=== PATIENT | male | born 1980 | race African-American/Black ===

== ENCOUNTER 2017-05-29 15:49 | Emergency (ER) | payer BC ==
[2017-05-29 16:06] VITALS: BP 118/79
--- NOTE | 2017-05-29 16:32 | UC ---
Complaint Male HPI - HPI Summary HPI Summary: Patient presents with complaints of dysuria, and is worried he may have a STD. He denies any penile discharge, abdominal pain, testicular pain or swelling. He denies any fever or chills. - History of Current Complaint Chief Complaint: UCSTDScreening Stated Complaint: STD TESTING Time Seen by Provider: 05/29/17 16:08 Hx Obtained From: Patient Onset/Duration: Gradual Onset Timing: Intermittent Severity Initially: Mild Severity Currently: Mild Location: Penis Character: Burning Associated Signs And Symptoms: Positive: Negative - Allergies/Home Medications Allergies/Adverse Reactions: Allergies Allergy/AdvReac Type Severity Reaction Status Date / Time No Known Allergies Allergy Verified 05/29/17 16:06 Home Medications: Home Medications Levothyroxine TAB* [Synthroid TAB*] 125 mcg PO 0800 05/29/17 [History Confirmed 05/29/17] PMH/Surg Hx/FS Hx/Imm Hx Previously Healthy: Yes - Surgical History Surgical History: Yes Surgery Procedure, Year, and Place: LEFT FOOT SURGERY 10/2015. BACK SURGERY CHILD. THYROID SURGERY 2015 - Family History Known Family History: Positive: Diabetes - father - Social History Occupation: Employed Full-time Lives: With Family Alcohol Use: None Substance Use Type: None Smoking Status (MU): Never Smoked Tobacco When Did the Patient Quit Smoking/Using Tobacco: 15 YRS AGO Review of Systems Constitutional: Negative Skin: Negative Eyes: Negative ENT: Negative Respiratory: Negative Cardiovascular: Negative Gastrointestinal: Negative Genitourinary: Dysuria Motor: Negative Neurovascular: Negative Musculoskeletal: Negative Neurological: Negative All Other Systems Reviewed And Are Negative: Yes Physical Exam Triage Information Reviewed: Yes Appearance: Well-Appearing Vital Signs: Initial Vital Signs Temp 98.5 F 05/29/17 16:02 Pulse 78 05/29/17 16:02 Resp 14 05/29/17 16:02 BP 118/79 05/29/17 16:02 Pulse Ox 99 05/29/17 16:02 Vital Signs Reviewed: Yes Eye Exam: Normal ENT Exam: Normal Neck exam: Normal Respiratory Exam: Normal Cardiovascular Exam: Normal Abdominal Exam: Normal Abdomen Description: Positive: Other: - ;Normal external genitalia, circumsized male. palpable nodule on left shaft of penis (chronic). no discharge. no vesicles noted. Musculoskeletal Exam: Normal Skin Exam: Normal Complaint Male Course/Dx - Course Course Of Treatment: Patient presents with dysuria, an UA and urine GC/CT ordered results pending. Patient discharged in stable condition. Will follow up with test results. - Differential Dx/Diagnosis Differential Diagnosis/HQI/PQRI: Other - dysuria Provider Diagnoses: dysuria Discharge - Discharge Plan Condition: Stable Disposition: HOME Patient Education Materials: Dysuria (ED) Referrals: Bertha Monge MD [Primary Care Provider] -
== END 2017-05-29 16:52 | disposition home or self-care (01) ==
LOC: UCEAST 15:49
DX: R30.0 Dysuria (principal); Z87.891 Personal history of nicotine dependence
CPT/HCPCS: 81003; 87491; 87591; 99211; G0463

== ENCOUNTER 2018-08-21 12:50 | Emergency (ER) | payer BC ==
--- NOTE | 2018-08-21 13:28 | UC ---
Cardiac HPI - HPI Summary HPI Summary: PATIENT REPORTS ABOUT 3 WEEKS OF COUGH AND CONGESTION. COMPLETED A COURSE OF AMOXICILLIN 3 DAYS AGO AND FEELS NO BETTER. DENIES FEVER OR NAUSEA BUT STATES THIS MORNING HE DEVELOPED LEFT ANTERIOR CHEST PAIN. PATIENT IS UNABLE TO QUALIFY THE DISCOMFORT BUT STATES THAT IT RADIATED THROUGH TO HIS BACK AND DOWN HIS LEFT ARM. HE DID HAVE ASSOCIATED SHORTNESS OF BREATH AND FELT IT WAS WORSE WHEN HE MOVED AROUND. STATES THE PAIN LASTED FOR ABOUT 5 MINUTES AND THEN SPONTANEOUSLY RESOLVED. PATIENT IS CURRENTLY CHEST PAIN-FREE. DENIES RECREATIONAL DRUG USE. - History of Current Complaint Chief Complaint: UCRespiratory Stated Complaint: COUGH Time Seen by Provider: 08/21/18 13:10 Hx Obtained From: Patient Onset/Duration: Sudden Onset, Lasting Hours, Resolved Initial Severity: Moderate Current Severity: Moderate Pain Intensity: 2 Chest Pain Location: Left Anterior Character: Fluttering Aggravating Factor(s): Exertion Alleviating Factor(s): Spontaneous Resolution Associated Signs & Symptoms: Positive: Chest Pain, SOB, Cough, Back Pain - Allergy/Home Medications Allergies/Adverse Reactions: Allergies Allergy/AdvReac Type Severity Reaction Status Date / Time No Known Allergies Allergy Verified 08/21/18 13:05 PMH/Surg Hx/FS Hx/Imm Hx Endocrine History: Hypothyroidism - Surgical History Surgical History: Yes Surgery Procedure, Year, and Place: LEFT FOOT SURGERY 10/2015 - REMOVAL OF FOOT - W/ A PIN. BACK SURGERY CHILD -. THYROID SURGERY 2015. [facility] -[facility]- - Family History Known Family History: Positive: Diabetes - father - Social History Alcohol Use: None Substance Use Type: None Smoking Status (MU): Former Smoker When Did the Patient Quit Smoking/Using Tobacco: 15 YRS AGO Review of Systems All Other Systems Reviewed And Are Negative: Yes Constitutional: Positive: Negative Skin: Positive: Negative ENT: Positive: Nasal Discharge Respiratory: Positive: Shortness Of Breath, Cough Cardiovascular: Positive: Chest Pain Gastrointestinal: Positive: Negative Physical Exam Triage Information Reviewed: Yes Appearance: Well-Appearing, No Pain Distress, Well-Nourished Vital Signs: Initial Vital Signs Temp 98.5 F 08/21/18 13:00 Pulse 88 08/21/18 13:00 Resp 18 08/21/18 13:00 BP 137/72 08/21/18 13:00 Pulse Ox 98 08/21/18 13:00 Vital Signs Reviewed: Yes Eyes: Positive: Conjunctiva Clear ENT: Positive: Hearing grossly normal Neck: Positive: Supple Respiratory Exam: Normal Cardiovascular Exam: Normal Abdomen Description: Positive: Soft Musculoskeletal: Positive: No Edema Neurological: Positive: Alert Psychological: Positive: Age Appropriate Behavior Skin: Negative: Rashes - Assessment/Plan Course Of Treatment: EKG SINUS RHYTHM 69 BPM. T WAVE FLATTENING INFERIOR LEADS AND QUESTIONABLE ST ELEVATION ANTERIOR LEADS. PT IS CURRENTLY ASYMPTOMATIC BUT GIVEN EKG APPEARANCE AND PT C/O CP EARLIER TODAY ROXIE SEND TO ED BY AMBULANCE. PIV INSERTED. ASA 81MG X 4 GIVEN IN UC. - Clinical Impression Provider Diagnosis: Chest pain, Abnormal EKG - Physician Notifications Discussed Patient Care With: Len Clarke - [place] [facility] [facility] [place] Time Discussed With Above Provider: 13:35 Instructed by Provider To: MD Will See In ED Discharge - Sign-Out/Discharge Documenting (check all that apply): Patient Departure All imaging exams completed and their final reports reviewed: No Studies - Discharge Plan Condition: Stable Disposition: TRANS HIGHER LVL OF CARE FAC Patient Education Materials: Chest Pain (ED) Referrals: Bertha Monge MD [Primary Care Provider] - If Needed - Billing Disposition and Condition Condition: STABLE Disposition: Trans Higher Lvl of Care Fac
[2018-08-21] MEDS ORDERED: Aspirin 81 mg CHEW TAB* 81 MG TAB.CHEW PO ONE (13:39)
[2018-08-21 13:49] VITALS: BP 129/72
== END 2018-08-21 13:56 | disposition short-term general hospital (02) ==
LOC: UCEAST 12:50
DX: R07.89 Other chest pain (principal); R94.31 Abnormal electrocardiogram [ECG] [EKG]; R06.02 Shortness of breath; R05 Cough; M54.9 Dorsalgia, unspecified; Z87.891 Personal history of nicotine dependence
CPT/HCPCS: 93005; 99213; A9270-GY; G0463

== ENCOUNTER 2018-08-21 14:09 | Emergency (ER) | payer BC ==
[2018-08-21 15:08] LABS: ABS Basophils 0.1 10^3/ul (0-0.2); ABS Eosinophils 0.3 10^3/ul (0-0.6); ABS Lymphocytes 1.6 10^3/ul (1.0-4.8); ABS Monocytes 0.5 10^3/ul (0-0.8); ABS Neutrophils 3.2 10^3/ul (1.5-7.7); ABS Nucleated RBC 0 10^3/ul; Eosinophil % 5.6 %; Hematocrit 41 % (42-52); Hemoglobin 13.8 g/dl (14.0-18.0); Lymphocyte % 28.3 %; Mean Corpuscular HGB Conc 34 g/dl (31-36); Mean Corpuscular Hemoglobin 31 pg (27-31); Mean Corpuscular Volume 91 fL (80-94); Mean Platelet Volume 9.1 fL (7.4-10.4); Nucleated Red Blood Cells % 0.2; Platelet Count 234 10^3/ul (150-450); Red Blood Count 4.46 10^6/ul (4.00-5.40); Red Cell Distribution Width 14 % (10.5-15); White Blood Count 5.6 10^3/ul (3.5-10.8)
--- NOTE | 2018-08-21 15:09 | ED ---
HPI Chest Pain - HPI Summary HPI Summary: This pt is a 38 y/o male presenting to [facility] via EMS from [facility] for chest pain today. Pt reports he has had congestion and cough for the past 3 weeks. He notes he saw his PCP and was placed on Amoxicillin, which he finished 3 days ago with mild relief. Pt states he then began with productive cough with dark yellow/green sputum. This morning at around 05:30 while he was brushing his teeth he had sudden onset of chest pain. Pt describes "funny bone pain" on the left side of his chest that radiated down his left arm. Denies fever, chills, abd pain, nausea, vomiting. Pt notes his chest pain lasted a few minutes and resolved on its own. Pt went to Urgent Care where he was given 324 mg aspirin had an EKG done. Currently pt denies any chest pain. Pt denies having had chest pain in the past few weeks. Denies tobacco and drug use. No PMHx. - History of Current Complaint Chief Complaint: EDFluSymptoms Time Seen by Provider: 08/21/18 14:31 Hx Obtained From: Patient Onset/Duration: Started Hours Ago, Resolved Timing: Lasting Minutes Initial Severity: Moderate Current Severity: None Pain Intensity: 0 Pain Scale Used: 0-10 Numeric Chest Pain Location: Left Anterior Chest Pain Radiates: Yes Chest Pain Radiates To:: Arm - left Character: Dull/Aching - "funny bone pain" Aggravating Factor(s): Nothing Alleviating Factor(s): Spontaneous Resolution Associated Signs and Symptoms: Positive: Chest Pain. Negative: Fever, Chills, Nausea, Abdominal Pain, Vomiting - Allergy/Home Medications Allergies/Adverse Reactions: Allergies Allergy/AdvReac Type Severity Reaction Status Date / Time No Known Allergies Allergy Verified 08/21/18 13:05 PMH/Surg Hx/FS Hx/Imm Hx Endocrine/Hematology History: Reports: Hx Thyroid Disease Denies: Hx Diabetes Cardiovascular History: Denies: Hx Hypertension, Hx Pacemaker/ICD History: Denies: Hx Renal Disease Sensory History: Denies: Hx Contacts or Glasses - GLASSES, Hx Hearing Aid Opthamlomology History: Denies: Hx Contacts or Glasses - GLASSES Psychiatric History: Denies: Hx Panic Disorder - Surgical History Surgery Procedure, Year, and Place: LEFT FOOT SURGERY 10/2015 - REMOVAL OF FOOT - W/ A PIN. BACK SURGERY CHILD -. THYROID SURGERY 2016. [facility] -EYE- Hx Anesthesia Reactions: No Infectious Disease History: No Infectious Disease History: Denies: Traveled Outside the [place] in Last 30 Days - Family History Known Family History: Positive: Diabetes - father - Social History Alcohol Use: None Substance Use Type: Reports: None Smoking Status (MU): Former Smoker Review of Systems Negative: Fever, Chills Positive: Chest Pain Positive: Cough Negative: Abdominal Pain, Vomiting, Nausea All Other Systems Reviewed And Are Negative: Yes Physical Exam - Summary Physical Exam Summary: Appearance: Well appearing, no pain distress Skin: warm, dry, reflects adequate perfusion Head/face: normal Eyes: EOMI, GWYN ENT: normal Neck: supple, nontender Respiratory: CTA, breath sounds present Cardiovascular: RRR, pulses symmetrical Abdomen: nontender, soft Musculoskeletal: normal, strength/ROM intact Neuro: normal, sensory motor intact, A&Ox3 Triage Information Reviewed: Yes Vital Signs On Initial Exam: Initial Vitals Temp Pulse Resp BP Pulse Ox 98.9 F 59 18 121/74 99 08/21/18 14:14 08/21/18 14:14 08/21/18 14:14 08/21/18 14:14 08/21/18 14:14 Vital Signs Reviewed: Yes Diagnostics - Vital Signs Vital Signs Temp Pulse Resp BP Pulse Ox 08/21/18 14:14 98.9 F 59 18 121/74 99 - Laboratory Result Diagrams: 08/21/18 14:59 08/21/18 14:59 Lab Statement: Any lab studies that have been ordered have been reviewed, and results considered in the medical decision making process. - Radiology Chest XR Radiology Interpretation Completed By: Radiologist Summary of Radiographic Findings: IMPRESSION: No active cardiopulmonary disease. Dr. Clarke has reviewed this report. - EKG 14:12 Cardiac Rate: NL - at 82 bpm EKG Rhythm: Sinus Rhythm Summary of EKG Findings: sinus rhythm at 82 bpm Chest Pain Course/Dx - Course Assessment/Plan: Pt is a 38 y/o male who presents via EMS from [facility] for chest pain today. Pt reports he has had congestion and cough for the past 3 weeks. He notes he saw his PCP and was placed on Amoxicillin, which he finished 3 days ago with mild relief. Pt states he then began with productive cough with dark yellow/green sputum. This morning at around 05:30 while he was brushing his teeth he had sudden onset of chest pain. Pt describes "funny bone pain" on the left side of his chest that radiated down his left arm. Denies fever, chills, abd pain, nausea, vomiting. Pt notes his chest pain lasted a few minutes and resolved on its own. Pt went to Urgent Care and had an EKG done. Currently pt denies any chest pain. Blood work, chest XR, and EKG obtained. EKG shows normal sinus rhythm. Chest XR shows no active cardiopulmonary disease. Pt will be discharged home with follow up from his PCP. Pt was given a prescription for Motrin. He was instructed to return to the ED for any worsening or new symptoms. - Chest Pain Differential Diagnosis/HQI/PQRI: Chest Wall, Lower Respiratory Infection - Diagnoses Provider Diagnoses: Atypical chest pain Discharge - Sign-Out/Discharge Documenting (check all that apply): Patient Departure - Discharge home - Discharge Plan Condition: Stable Disposition: HOME Prescriptions: Ibuprofen TAB* [Motrin TAB* 600 MG] 600 mg PO Q8H PRN #20 tab MDD 3 PRN Reason: Pain Patient Education Materials: Chest Pain (ED) Referrals: Bertha Monge MD [Primary Care Provider] - Additional Instructions: Please follow up with your primary care provider in 3 days. RETURN TO THE ED FOR ANY WORSENING OR NEW SYMPTOMS. - Billing Disposition and Condition Condition: STABLE Disposition: Home - Attestation Statements Document Initiated by Sudhakar: Yes Documenting Scribe: Tayla Ortez Provider For Whom Sudhakar is Documenting (Include Credential): Len Clarke MD Scribe Attestation: Tayla Rsoenthal scribed for Len Clarke MD on 08/21/18 at 1618. Scribe Documentation Reviewed: Yes Provider Attestation: The documentation as recorded by the Tayla flores accurately reflects the service I personally performed and the decisions made by , Len Clarke MD Status of Scribe Document: Viewed
[2018-08-21 15:20] LABS: INR 0.98 (0.77-1.02)
[2018-08-21 15:32] LABS: EGFR Non-African American 86.8 (>60)
[2018-08-21 15:58] VITALS: BP 115/80
== END 2018-08-21 15:57 | disposition home or self-care (01) ==
LOC: ED 14:09
DX: R07.89 Other chest pain (principal); R05 Cough; Z87.891 Personal history of nicotine dependence
CPT/HCPCS: 36415; 71046; 80053; 84484; 85025; 85610; 85730; 93005; 99282

== ENCOUNTER → 2019-07-11 | Day surgery (SDC) | payer BC ==
[~2019-07-11] MED LIST: Buffered Lidocaine 1% SYRIN* 1 ML/SYRINGE INTRADERM ONE; Bupivacaine 0.25% SDV PF* 10 ML VIAL INJ ONE; Dexamethasone IV* 4 MG/ML 1 ML (4 MG) ONE; Lactated Ringers 1000 ML Bag* 1,000 ML IV SCH; Lidocaine 1% INJ* 10 MG/ML 30 ML SDV ONE; Lidocaine 2% PF * 5 ML VIAL ONE; Midazolam* 1 MG/ML 5 ML VIAL (5 MG) ONE; Naloxone* 0.4 MG/ML 1 ML VIAL IV PRN; Propofol* 10 MG/ML 20 ML BTL ONE; ceFAZolin 2 GM PREMIX in ORs 2 GM/50 ML BAG ONE; fentaNYL* 50 MCG/ML 2 ML VIAL (100 MCG VIAL) ONE
[2019-07-11 14:07] VITALS: BP 118/77
--- NOTE | 2019-07-11 22:04 | OP ---
DATE OF OPERATION: 07/11/19 - [facility] DATE OF : 76 SURGEON: Jason Angulo DPM ANESTHESIA: MAC, local. PRE-OP DIAGNOSIS: Left third plantarflexed metatarsal. POST-OP DIAGNOSIS: Left third plantarflexed metatarsal. OPERATIVE PROCEDURE: Left third metatarsal head resection. ESTIMATED BLOOD LOSS: Less than 10 cc. IV FLUIDS: LR 1000 cc. DRAINS: None. SPECIMENS: Head of the left third metatarsal. DESCRIPTION OF PROCEDURE: The patient was taken to the operating room and was placed in supine position. Time-out was called and OR team agreed. The left foot was then blocked with 5 cc of 1% lidocaine plain in a Starr block fashion at the base of the third metatarsal. The foot was then prepped and draped in a sterile manner. The left foot was then exsanguinated with an Esmarch bandage and the cuff was then inflated to 250 mmHg. Attention was then paid to the left third metatarsophalangeal joint where there is a plantarflexed metatarsal head. I went ahead and made a linear incision right over the joint with a #15 blade. This was followed by sharp and blunt dissection starting from the epidermis, dermis, subcutaneous tissue, deep fascia and down to the capsule. I incised the capsule and went down to the joint and exposed the head of the left third metatarsal. I cut the lateral collateral ligament and that held it in place. I then identified the neck of the metatarsal. I went ahead and used a sagittal saw and cut the head at the level of the neck. Once it was determined that adequate portions of the head of the metatarsal was removed, I went ahead and irrigated the site, inspected the joint. Once it was deemed adequate, I went ahead and closed the wound in a layered anatomical fashion. The deep tissues were closed with 3-0 Vicryl and the skin was closed with 4-0 nylon. I injected the site with 8 cc of 0.25% Marcaine plain and 1 cc of 4 mg of dexamethasone phosphate. The foot was placed in a dry sterile dressing. The cuff was deflated. There was instantaneous capillary refill, no signs of ischemia. The patient was taken to Recovery in stable condition and tolerated the procedure well. He was later discharged in stable condition as well. I will see him in the office in 3 days. [id number]/[facility] #: [id number] [place]
== END | disposition home or self-care (01) ==
LOC: OR 10:34
PROVIDERS: ATTEND Podiatrist
DX: M21.6X2 Other acquired deformities of left foot (principal); Z87.891 Personal history of nicotine dependence; E03.9 Hypothyroidism, unspecified
CPT/HCPCS: 88304; 88311; J0690; J1100; J2250; J2704; J3010; J3490